=== PATIENT | male | born 1975 | race Caucasian/White ===

== ENCOUNTER 2024-07-05 10:15 | Day surgery (SDC) | payer OTHER, SELFPAY ==
--- NOTE | 2024-06-29 07:00 | EKG_ITS ---
[facility] Test Date: 2024-06-29 Pat Name: CONSTANTIN PATRICIA Department: Room: - Gender: Male Winchman/Crane Operator: ANDREA : 1975 Requested By: Kirill Rosenberg Order Number: [id number] Reading MD: Kirill Rosenberg Measurements Intervals [place] Rate: 78 P: HI: QRS: 27 QRSD: 120 T: 29 QT: 418 QTc: 477 Interpretive Statements UNCERTAIN REGULAR RHYTHM INDETERMINATE AXIS POSSIBLE RIGHT VENTRICULAR CONDUCTION DELAY No previous ECG available for comparison /store/S0/[id number]
[2024-06-29 08:13] VITALS: BMI 39.2
[2024-06-29 09:08] LABS: Basophils # (Auto) 0.1 Thou/mm3 (0.0-0.2); Basophils % (Auto) 2 % (0-2.5); Eosinophils # (Auto) 0.1 Thou/mm3 (0.0-0.5); Eosinophils % (Auto) 2 % (0-10); Hematocrit 47.9 % (41.0-53.0); Hemoglobin 17.1 g/dL (13.5-16.0); Immature Granulocytes % (Auto) 1 % (0-0); Immature Granulocytes Auto 0.06 Thou/mm3 (0.00-0.00); Lymphocytes # (Auto) 2.4 Thou/mm3 (1.0-4.8); Lymphocytes % (Auto) 35 % (10-50); Mean Corpuscular HGB Conc 35.7 g/dl (31.0-37.0); Mean Corpuscular Hemoglobin 31.7 pg (25.0-35.0); Mean Corpuscular Volume 89 fL (80-100); Monocytes # (Auto) 0.7 Thou/mm3 (0.0-0.8); Monocytes % (Auto) 10 % (0-12); Neutrophils # (Auto) 3.4 Thou/mm3 (1.8-7.7); Neutrophils % (Auto) 50 % (37-80); Nucleated Red Blood Cell % 0 /100 WBC (0); Platelet Count 313 Thou/mm3 (140-440); RDW Standard Deviation 40.9 fL (35.1-43.9); White Blood Count 6.8 Thou/mm3 (3.8-10.6)
[2024-06-29 09:26] LABS: Alanine Aminotransferase 147 U/L (10-49); Albumin, Serum 4.7 gm/dL (3.5-5.0); Albumin/Globulin Ratio 1.7 (1.2-2.2); Alkaline Phosphatase 45 U/L (46-116); Anion Gap 7 (7-16); Aspartate Amino Transferase 98 U/L (0-34); BUN/Creatinine Ratio 12 Ratio (12-20); Bilirubin,Total 0.8 mg/dL (0.3-1.2); Blood Urea Nitrogen 12 mg/dL (9-23); Calcium 9.4 mg/dL (8.3-10.6); Calcium (Corrected) 9.4 mg/dL (8.5-10.1); Carbon Dioxide 29.6 mMol/L (20.0-31.0); Chloride 98 mMol/L (98-107); Estimated Creatinine Clearance 104.1 mL/min (>60); Globulin 2.7 gm/dL (2.3-3.5); Glucose 158 mg/dL (74-106); Osmolality,Calculated 272 (275-295); Sodium 135 mMol/L (136-145); Total Protein 7.4 gm/dL (5.7-8.2); eGFR > 60 See Note
--- NOTE | 2024-07-04 15:24 | SUR.PREOP ---
Pt notified to come in at 1030 tomorrow.
[2024-07-05] VITALS (7 sets, daily range): BP systolic 162–184; BP diastolic 86–118; PULSE 87–93; RESP 12–16; TEMP 36.8–37.2; O2SAT 95–97; BMI 38.5
[2024-07-05] MEDS: OXYMETAZOLINE NAS SPRY 0.05% 15 ML BTL 3 SPRAY NASAL (11:19)
[2024-07-05] MEDS: RINGERS LACTATED 1000 ML 1,000 ML 20 ML IV (11:20)
--- NOTE | 2024-07-05 12:42 | SUR.PHASEI ---
pt received from OR in recovery bay 7. pt asleep but responds to voice, breathing unlabored on room air. v/s stable. pt dressing under nose cdi. report received from Dr. Anand and Lexie SMITH.
[2024-07-05] MEDS: ACETAMINOPHEN IVPB 1,000 MG/100 ML VIAL 250 MG IV (13:02)
--- NOTE | 2024-07-05 13:05 | PD.SUROPNT ---
Date of Procedure 07/05/24 Pre Op Diagnosis Nasal septal deviation with obstruction Post Op Diagnosis Nasal septal deviation with obstruction Procedure Intranasal septoplasty Findings Severely deviated nasal septum to the right side and both cartilaginous and bony septum. There is a large spur to the left side inferiorly. Procedure Description Indications: This is a 49-year-old male with chronic nasal congestion with the above findings refractory to medical therapy. Surgical procedure and treatment options were discussed and he wished to proceed as outlined above. Patient was transferred to the operative suite where he is anesthetized per LMA. He was then sterilely draped and a timeout performed. The nasal septum was injected with 1% lidocaine with 1 100,000 dilution epinephrine. Approximately 5 cc total were used. The mucosa is very friable on the left side of the septum. There is a tear that occurred anteriorly and elevating the mucosal flap on the left side. Mucosa was then elevated off the spur inferiorly. The perpendicular plate was from the quadrangular cartilage with a freer elevator being careful not to create any tears on the opposing side. Elsa forceps were then used to remove the deviated perpendicular plate. There is still some cartilaginous flaring of the septum to the left side posteriorly. This was trimmed with the cartilage knife which improved that deviation. The cartilaginous spur on the left side was trimmed off with the caudal elevator. The cartilage was then disarticulated from the underlying vomer and repositioned and sutured in place with interrupted 4-0 Vicryl suture. The rim incision was closed with 4-0 plain gut suture. Freedman splints were coated with double antibiotic ointment and trimmed and then inserted and sutured in place with 3-0 silk suture. Septum was closer to the midline. There is still some deviation to the right but not as severe as what it had been. Patient was awakened and taken recovery room in stable condition Anesthesia other (General Per LMA) Pathology / specimen None Estimated Blood Loss 5 Surgeon Kirill Man DO Surgical Staff Operation Date: 07/05/24 12:45 Case Staff Anesthesiologist: Juan Anand
--- NOTE | 2024-07-05 13:06 | SUR.PHASEI ---
pt able to tolerate oral fluids without difficulty swallowing or nausea/vomiting.
--- NOTE | 2024-07-05 13:55 | SUR.PHASEII ---
pt awake and alert, breathing unlabored on room air. v/s stable. pt dressing under nose cdi. pt able to ambulate to wheelchair with steady gait. d/c instructions given with in room, all questions answered. pt d/c via wheelchair with all belongings.
== END 2024-07-05 13:55 | disposition home or self-care (01) ==
PROVIDERS: PCP Family Medicine; Referring Provider Otolaryngology; Visit Provider Otolaryngology
PROC: (CPT 30520; principal; 2024-07-05 12:30)
DX: J34.2 Deviated nasal septum (principal); Z01.810 Encounter for preprocedural cardiovascular examination
CPT/HCPCS: 30520; 36415; 80053; 85025; 93005; A4217; A4649; J0131; J0690; J1100; J2250; J2405; J2704; J3010; J3490; J7040; J7120; A9270